=== PATIENT | female | born 1960 | race Caucasian/White ===

== ENCOUNTER 2022-06-04 11:33 | Observation (INO) ==
[2022-06-04 12:28] LABS: Basophils # 0.1 K/mcL (0.0-0.2); Basophils % 0.8 %; Eosinophils # 0.5 K/mcL (0.0-0.6); Eosinophils % 6.7 %; Hemoglobin 13.6 g/dL (11.5-15.4); Immature Granulocytes % 0.1 % (0-4); Lymphocytes # 2.3 K/mcL (0.6-4.6); Lymphocytes % 30.3 %; Mean Corpuscular HGB Conc 33.2 g/dL (31.6-35.5); Mean Corpuscular Hemoglobin 29.3 pg (28.0-33.3); Mean Corpuscular Volume 88.4 fL (83.0-100.0); Monocytes # 0.4 K/mcL (0.0-1.3); Monocytes % 5.3 %; Neutrophils # 4.2 K/mcL (1.6-8.9); Platelet Count 253 K/mcL (140-400); Red Blood Count 4.64 M/mcL (3.82-4.97); Red Cell Distribution Width 13.6 % (11.5-14.5); Segmented Neutrophils % 56.8 %; White Blood Count 7.4 K/mcL (4.3-11.1)
[2022-06-04 12:53] LABS: BUN/Creatinine Ratio 11 (6-26); Blood Urea Nitrogen 7 mg/dL (6-20); Calcium 9.2 mg/dL (8.6-10.3); Carbon Dioxide 22 mEq/L (23-29); Chloride 107 mEq/L (98-107); Glucose 165 mg/dL (70-105); Osmolality,Calculated 288 (280-300); Potassium 3.8 mEq/L (3.5-5.1); Sodium 138 mEq/L (136-145); Troponin I < 0.03 ng/mL (< 0.04)
[2022-06-04] MEDS ORDERED: Morphine Sulfate 2 MG/ML SYRINGE IVP ONE (14:19)
[2022-06-04] MEDS ORDERED: Pantoprazole 40 MG VIAL IVP ONE (14:19)
[2022-06-04] MEDS ORDERED: Aspirin 325 MG TABLET PO ONE (14:19)
[2022-06-04] MEDS: Nitroglycerin 0.4 MG TAB.SUBL SL PRN ×2 (15:03→15:12)
[2022-06-04] MEDS ORDERED: Naloxone 0.4 MG/ML INJ IVP PRN (15:42)
[2022-06-04] MEDS ORDERED: Melatonin 3 MG TABLET PO PRN (15:42)
[2022-06-04] MEDS ORDERED: Ondansetron ODT 4 MG TAB.RAPDIS SL PRN (15:42)
[2022-06-04] MEDS ORDERED: *HR* HYDROcodone/Acet 5/325 mg TABLET PO PRN (17:23)
[2022-06-04] MEDS: Nicotine 21 MG PATCH.TD24 TD SCH (18:10)
[2022-06-04] MEDS: Gabapentin 300 MG CAPSULE PO SCH (20:31)
[2022-06-05 01:58] LABS: Basophils # 0.1 K/mcL (0.0-0.2); Basophils % 0.8 %; Eosinophils # 0.7 K/mcL (0.0-0.6); Eosinophils % 7.9 %; Hematocrit 37.2 % (35.3-44.9); Hemoglobin 12.5 g/dL (11.5-15.4); Immature Granulocytes % 0.4 % (0-4); Lymphocytes # 3.6 K/mcL (0.6-4.6); Lymphocytes % 42.5 %; Mean Corpuscular HGB Conc 33.6 g/dL (31.6-35.5); Mean Corpuscular Hemoglobin 29.8 pg (28.0-33.3); Mean Corpuscular Volume 88.6 fL (83.0-100.0); Mean Platelet Volume 9.9 fL (9.4-12.4); Monocytes # 0.8 K/mcL (0.0-1.3); Monocytes % 9.3 %; Neutrophils # 3.3 K/mcL (1.6-8.9); Platelet Count 221 K/mcL (140-400); Red Cell Distribution Width 13.7 % (11.5-14.5); Segmented Neutrophils % 39.1 %; White Blood Count 8.4 K/mcL (4.3-11.1)
[2022-06-05 02:18] LABS: Chol/HDL Ratio 6.5 (0-4.9)
[2022-06-05 02:19] LABS: BUN/Creatinine Ratio 14 (6-26); Blood Urea Nitrogen 11 mg/dL (6-20); Calcium 8.7 mg/dL (8.6-10.3); Carbon Dioxide 26 mEq/L (23-29); Chloride 107 mEq/L (98-107); Glucose 97 mg/dL (70-105); Osmolality,Calculated 285 (280-300); Sodium 138 mEq/L (136-145)
[2022-06-05 03:01] LABS: Estimated Average Glucose 120 mg/dl; Hemoglobin A1C 5.8 %
[2022-06-05] MEDS ORDERED: Regadenoson 0.4 MG/5 ML SYRINGE IVP ONE (06:03)
[2022-06-05 07:08] VITALS: PULSE 76
[2022-06-05] MEDS ORDERED: Aspirin Enteric Coated 81 MG Tablet PO SCH (09:00)
[2022-06-05 10:12] VITALS: BP 124/79; TEMP 97.6; O2SAT 98
[2022-06-05] MEDS: Nicotine 21 MG PATCH.TD24 TD SCH (10:26)
[2022-06-05] MEDS: Gabapentin 300 MG CAPSULE PO SCH (10:26)
[2022-06-05] MEDS ORDERED: Ondansetron ODT 4 MG TAB.RAPDIS SL PRN (10:28)
[2022-06-05] MEDS ORDERED: Melatonin 3 MG TABLET PO PRN (11:11)
[2022-06-05] MEDS ORDERED: Acetaminophen 325 MG TABLET PO PRN (11:17)
[2022-06-06] MEDS ORDERED: Leflunomide [Arava] 20 MG Tablet PO SCH (09:00)
[2022-06-06] MEDS ORDERED: (Vilazodone Hcl [Viibryd] 40 MG Tablet) PO SCH (09:00)
== END 2022-06-05 13:50 | disposition home or self-care (01) ==
LOC: EMEROOARM 11:33 → 3BNU 11:33 → SUATTDRO 14:59 → 3BNU 16:09
PROVIDERS: ADMIT Hospitalist; ATTEND Internal Medicine